=== PATIENT | female | born 1960 | race Caucasian/White ===

== ENCOUNTER 2019-05-23 07:18 | Emergency (ER) | payer OTHER ==
[~2019-05-23] VITALS: Ht 160 cm; Wt 129.7 kg
[2019-05-23 07:22] VITALS: Ht 160 cm; Wt 129.7 kg
[2019-05-23 08:07] VITALS: BP 145/68
== END 2019-05-23 08:07 | disposition home or self-care (01) ==
LOC: ED 07:18
DX: J02.9 Acute pharyngitis, unspecified (principal); H92.02 Otalgia, left ear; I10 Essential (primary) hypertension; E11.9 Type 2 diabetes mellitus without complications; E78.00 Pure hypercholesterolemia, unspecified